=== PATIENT | male | born 1970 | race Caucasian/White ===

== ENCOUNTER 2017-02-13 05:50 | Inpatient (IN) | payer SELFPAY ==
[~2017-02-13] VITALS: Ht 157.5 cm; Wt 57.6 kg
[2017-02-13] MEDS ORDERED: SODIUM CHLORIDE 0.9% 1,000 ML IV ONE ×2 (07:21→07:30)
[2017-02-13] MEDS ORDERED: GABAPENTIN 300MG CAPSULE PO STA (07:23)
[2017-02-13] MEDS ORDERED: ONDANSETRON HCL 4MG/2ML VIAL IV ONE (07:30)
[2017-02-13] MEDS ORDERED: FOLIC ACID 1 MG, THIAMINE HCL 100 MG, MVI, ADULT NO.1 10 ML in DEXTROSE 5% WATER 1,000 ML IV ONE ×4 (07:30)
[2017-02-13] MEDS ORDERED: DIAZEPAM 5 MG/ML 2ML CPJ IV ONE (07:30)
[2017-02-13 07:51] LABS: BASOPHILS % 0.5 % (0.0-2.0); EOSINOPHILS % 0.9 % (0.0-5.0); HEMOGLOBIN. 10.2 g/dL (14.0-18.0); MEAN CORPUSCULAR HEMOGLOBIN 27.3 pg (28.0-32.0); MEAN CORPUSCULAR VOLUME 83.4 fL (80.0-94.0); MEAN PLATELET VOLUME 8.6 fl (7.4-10.4); MONOCYTES % 13.2 % (2.0-8.0); NEUTROPHILS % 77.4 % (40.0-76.0); PLATELET 118 x1000/uL (130-400); RED BLOOD CELL COUNT 3.72 mill/uL (4.7-6.1)
[2017-02-13 07:56] LABS: INR 1.1; PROTHROMBIN TIME 11.4 sec (9.4-11.6)
[2017-02-13 08:04] LABS: CARBON DIOXIDE 30 mEq/L (21-32); CHLORIDE 101 mEq/L (98-107); ETHANOL BLOOD < 10 mg/dL
[2017-02-13 08:27] LABS: CLARITY URINE CLEAR (CLEAR); COLOR URINE DARK YELLOW (YELLOW); GLUCOSE URINE NEGATIVE (NEGATIVE); KETONES URINE 1+ (NEGATIVE); LEUKOCYTE ESTERASE URINE TRACE (NEGATIVE); NITRITE URINE NEGATIVE (NEGATIVE); OCCULT BLOOD URINE NEGATIVE (NEGATIVE); PH URINE 6.5 (4.5-8.0); PROTEIN URINE 1+ (NEGATIVE); SPECIFIC GRAVITY URINE 1.022 (1.005-1.030)
[2017-02-13] MEDS ORDERED: [UNRECOGNIZED DRUG - REMARK] IV SCH ×5 (08:30)
[2017-02-13 14:52] VITALS: BP 132/76
[2017-02-13] MEDS ORDERED: LORAZEPAM 2MG/ML CPJ IV PRN (15:15)
[2017-02-13] MEDS ORDERED: ACETAMINOPHEN 325MG TABLET PO PRN (15:15)
[2017-02-13] MEDS ORDERED: ONDANSETRON HCL 4MG/2ML VIAL IV PRN (15:15)
[2017-02-13] MEDS ORDERED: MAGNESIUM/ALUMINUM HYDROXIDE/SIMETHICONE 30ML UDC PO PRN (15:15)
[2017-02-13] MEDS ORDERED: CLONIDINE 0.1MG TABLET PO PRN (15:15)
[2017-02-13 16:00] VITALS: BP 129/83
[2017-02-13] MEDS: MULTIVITAMINS,THER W-MINERALS TABLET PO SCH (16:48)
[2017-02-13] MEDS: CHLORDIAZEPOXIDE 25MG CAPSULE PO SCH ×2 (16:48→21:14)
[2017-02-13] MEDS: DEXT 5%/0.45% NACL 1000ML 1,000 ML IV SCH (16:48)
[2017-02-13] MEDS: THIAMINE HCL 100MG TABLET PO SCH (16:48)
[2017-02-13 20:00] VITALS: BP 114/80
[2017-02-13] MEDS: GABAPENTIN 300MG CAPSULE PO SCH (21:14)
[2017-02-14] VITALS: BP 120/76
[2017-02-14 04:00] VITALS: BP 122/78
[2017-02-14] MEDS: DEXT 5%/0.45% NACL 1000ML 1,000 ML IV SCH ×2 (05:22→21:04)
[2017-02-14 07:00] LABS: HEMATOCRIT. 32.2 % (42.0-52.0); HEMOGLOBIN. 10.4 g/dL (14.0-18.0); MEAN CORPUSCULAR HEMOGLOBIN 27.5 pg (28.0-32.0); MEAN CORPUSCULAR VOLUME 85.1 fL (80.0-94.0); MEAN PLATELET VOLUME 8.7 fl (7.4-10.4); PLATELET 106 x1000/uL (130-400); RED BLOOD CELL COUNT 3.79 mill/uL (4.7-6.1); RED CELL DISTRIBUTION WIDTH 17.1 % (11.6-14.6)
[2017-02-14 08:00] VITALS: BP 116/77
[2017-02-14] MEDS: CHLORDIAZEPOXIDE 25MG CAPSULE PO SCH ×3 (08:03→21:02)
[2017-02-14] MEDS: THIAMINE HCL 100MG TABLET PO SCH (08:03)
[2017-02-14] MEDS: GABAPENTIN 300MG CAPSULE PO SCH ×3 (08:03→21:02)
[2017-02-14 08:04] LABS: CARBON DIOXIDE 28 mEq/L (21-32); CHLORIDE 101 mEq/L (98-107)
[2017-02-14] MEDS: FOLIC ACID 1MG TABLET PO SCH (08:04)
[2017-02-14] MEDS: MULTIVITAMINS,THER W-MINERALS TABLET PO SCH (08:04)
[2017-02-14] MEDS ORDERED: POTASSIUM CHLORIDE 20MEQ TABLET SR PO NR (10:00)
[2017-02-14] MEDS ORDERED: GABAPENTIN 300MG CAPSULE PO ONE (11:00)
[2017-02-14 16:00] VITALS: BP 104/73
[2017-02-14 18:20] LABS: PLATELET ESTIMATE DECREASED
[2017-02-14 20:00] VITALS: BP 114/69
[2017-02-15] VITALS: BP 110/79
[2017-02-15 04:00] VITALS: BP 103/61
[2017-02-15] MEDS: CHLORDIAZEPOXIDE 25MG CAPSULE PO SCH ×2 (05:01→14:28)
[2017-02-15] MEDS: GABAPENTIN 300MG CAPSULE PO SCH ×2 (05:02→14:28)
[2017-02-15 08:00] VITALS: BP 104/79
[2017-02-15] MEDS: DEXT 5%/0.45% NACL 1000ML 1,000 ML IV SCH (09:37)
[2017-02-15] MEDS: MULTIVITAMINS,THER W-MINERALS TABLET PO SCH (09:37)
[2017-02-15] MEDS: THIAMINE HCL 100MG TABLET PO SCH (09:38)
[2017-02-15] MEDS: FOLIC ACID 1MG TABLET PO SCH (09:38)
[2017-02-15 14:47] VITALS: BP 104/79
== END 2017-02-15 15:50 | disposition home or self-care (01) | DRG 775 ==
LOC: ER 05:50 → 8WST 10:46 → EDBEDREQ 10:50 → ENRESERV 12:25
PROVIDERS: ADMIT Hospitalist; ATTEND Hospitalist
DX: F10.239 Alcohol dependence with withdrawal, unspecified (principal); G62.9 Polyneuropathy, unspecified; R00.0 Tachycardia, unspecified
CPT/HCPCS: 36415; 80053; 81001; 83605; 83690; 85025; 85610; 96365; 96366; 96375; 97110; 97116; 97162; 97530; 99285; G0482; J2405; J3411; J3475; J3490; J7030; J7060; J7070